=== PATIENT | male | born 1955 | race American Indian/Alaskan Native ===

== ENCOUNTER 2018-04-17 10:00 | Emergency (ER) | payer OTHER ==
[2018-04-17] MEDS ORDERED: D50W 25 GM/50 ML SYRINGE IV ONE (10:13)
[2018-04-17 10:32] LABS: Protime INR 1.03
[2018-04-17 10:33] LABS: Absolute Lymphocytes (CBC) 2.6 K/uL (0.7-4.9); Absolute Monocytes 0.7 K/uL (0.1-1.3); Absolute Neutrophil 3.4 K/uL (1.8-8.0); Basophils % 0.8 % (0-1.3); Eosinophils % 0.6 % (0-4.4); Hematocrit 43.8 % (39.6-49.0); Lymphocytes % 38.5 % (15.3-44.8); MCV 85.9 fL (80-100); MPV 8.5 fL (7.6-11.3); Monocytes % 10.4 % (3.3-12.3)
[2018-04-17 10:45] LABS: ALT/SGPT 45 U/L (12-78); AST/SGOT 29 U/L (15-37); Albumin 3.9 g/dL (3.4-5.0); Alkaline Phosphatase 76 U/L (45-117); BUN Blood Urea Nitrogen 14 mg/dL (7-18); Bicarbonate 30 mmol/L (21-32); Bilirubin Direct 0.2 mg/dL (0-0.2); Bilirubin Total 0.7 mg/dL (0.2-1.0); Magnesium 2.3 mg/dL (1.8-2.4); NT PRO-BNP 6 pg/mL (<125); Potassium 3.7 mmol/L (3.5-5.1); Protein, Total 8.5 g/dL (6.4-8.2); Sodium Level 139 mmol/L (136-145); Troponin (Emerg Dept Use Only) < 0.02 ng/mL (0.0-0.045)
[2018-04-17 10:46] LABS: Glucose Level 31 mg/dL (74-106)
--- NOTE | 2018-04-17 10:52 | RAD REPORT ---
EXAM DESCRIPTION: RAD - Chest Single View - 04/17/2018 10:42 am CLINICAL HISTORY: syncope Chest pain. COMPARISON: Chest Pa And Lat (2 Views) dated 03/27/2016; Chest Pa And Lat (2 Views) dated 12/19/2015 FINDINGS: Portable technique limits examination quality. The lungs are grossly clear. The heart is normal in size. No displaced fractures. IMPRESSION: No acute intrathoracic process suspected.
[2018-04-17 10:53] LABS: Blood Morphology Comment NOT SEEN (NOT SEEN); Platelet Estimate ADEQ; Urine White Blood Cell Casts OK
--- NOTE | 2018-04-17 11:17 | ER ---
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 Pt given additional orange juice at this time, tolerating well. Pt appears calm at this time, denies any symptoms. A \\T\\ O X 3. 10:02 Transition of care: patient was not received from another setting of care. Onset of aa5 symptoms was April 17, 2018. Care prior to arrival: None. 10:02 Method Of Arrival: Wheelchair aa5 10:02 Acuity: IVY 2 aa5 10:15 Risk Assessment: Do you want to hurt yourself or someone else? Patient reports no aa5 desire to harm self or others. Initial Sepsis Screen: Does the patient meet any 2 criteria? No. Patient's initial sepsis screen is negative. Does the patient have a suspected source of infection? No. Patient's initial sepsis screen is negative. Historical: - Allergies: 10:15 No Known Allergies; aa5 - PMHx: 10:15 Diabetes - IDDM; Hyperlipidemia; aa5 - PSHx: 10:15 None; aa5 - Immunization history:: Flu vaccine is up to date. - Ebola Screening: : No symptoms or risks identified at this time. - Social history:: Smoking status: Patient/guardian denies using tobacco. Screenin:20 Abuse screen: Denies threats or abuse. Nutritional screening: No deficits noted. aa5 Tuberculosis screening: No symptoms or risk factors identified. Fall Risk None identified. Assessment: 10:05 General: Appears comfortable, Behavior is calm, cooperative, Pt states "I took lantus aa5 last night and I was so busy at work I didn't eat breakfast" . Pain: Denies pain. Neuro: Level of Consciousness is awake, alert, obeys commands, Oriented to person, place, time, situation, Costume Draper are equal bilaterally Moves all extremities. Speech is normal, Facial symmetry appears normal, Pupils are PERRLA. Cardiovascular: Heart tones S1 S2 present Rhythm is regular. Respiratory: Airway is patent Respiratory effort is even, unlabored, Respiratory pattern is regular, symmetrical, Breath sounds are clear bilaterally. GI: Abdomen is round non-distended, Bowel sounds present X 4 quads. Abd is soft and non tender X 4 quads. Patient currently denies nausea, vomiting. : No signs and/or symptoms were reported regarding the genitourinary system. EENT: No signs and/or symptoms were reported regarding the EENT system. Derm: Skin is dry, Skin is normal, Skin temperature is warm. Musculoskeletal: Range of motion: intact in all extremities. 10:15 Reassessment: Pt sitting up in bed, states no complaint at this time. . aa5 10:40 Reassessment: Pt sitting up in bed. Pt's at bedside. Equal unlabored respirations, aa5 skin is normal/warm/dry, A \\T\\ O x 4 . 11:12 Reassessment: Pt ate 100% of food. Pt sitting up in bed, A \\T\\ O X 4, equal and unlabored aa5 respirations, skin is normal/warm/dry. Pt's at bedside . Vital Signs: 10:05 BP 157 / 87; Pulse 72; Resp 16 S; Temp 98.8(O); Pulse Ox 95% on R/A; Weight 91.63 kg aa5 (R); Height 5 ft. 11 in. (180.34 cm) (R); Pain 0/10; 10:45 BP 150 / 83; Pulse 72; Resp 18 S; Temp 98.0(TE); Pulse Ox 100% on R/A; Pain 0/10; aa5 10:05 Body Mass Index 28.17 (91.63 kg, 180.34 cm) aa5 ED Course: 10:02 Patient arrived in ED. iw 10:05 Patient has correct armband on for positive identification. Placed in gown. Bed in low aa5 position. Call light in reach. Side rails up X2. 10:05 lunchroom monitor on. Pulse ox on. NIBP on. aa5 10:05 Arm band placed on. aa5 10:09 Karen Cantor RN is Primary Nurse. aa5 10:13 Ivan Andrade PA is PHCP. cp 10:13 Gage Regan MD is Attending Physician. cp 10:22 Triage completed. aa5 10:31 X-ray completed. Portable x-ray completed in exam room. Patient tolerated procedure mh1 well. 10:32 EKG done, by senior director of global commercial technology solutions. reviewed by Ivan LAM. at1 10:45 Notified Nurse Practitioner and/or Physician Nurse Healthcare Manager of a critical lab result(s), iw glucose 31. 10:46 XRAY Chest (1 view) In Process Unspecified. EDMS 11:28 IV discontinued, intact, bleeding controlled, No redness/swelling at site. Pressure aa5 dressing applied. 11:30 No provider procedures requiring assistance completed. aa5 Administered Medications: 10:10 Drug: D50W 50 ml Route: IVP; Site: right antecubital; aa5 Point of Care Testing: Blood Glucose: 10:02 Blood Glucose: 29 mg/dL; aa5 10:15 Blood Glucose: 146 mg/dL; aa5 10:40 Blood Glucose: 152 mg/dL; aa5 11:12 Blood Glucose: 155 mg/dL; aa5 Ranges: Outcome: 11:17 Discharge ordered by MD. cp 11:28 Discharged to home ambulatory, with significant other. aa5 11:28 Condition: improved 11:28 Discharge instructions given to patient, Instructed on discharge instructions, follow up and referral plans. Demonstrated understanding of instructions, follow-up care. 11:30 Patient left the ED. aa5 Signatures: Dispatcher [employer] EDNJ Orly Marroquin 1 Nabila Garcia RN RN iw Karen Cantor RN RN aa5 Pauly Feldman, timber framer helper EKG Tat1 Ivan Andrade PA PA cp Corrections: (The following items were deleted from the chart) 10:24 10:05 BP 157 / 87; Pulse 72bpm; Resp 16bpm; Spontaneous; Pulse Ox 95% RA; 91.63 kg aa5 Reported; Height 5 ft. 11 in. Reported; BMI: 28.1; Pain 0/10; aa5 10:25 10:02 Arm band placed on aa5 aa5
--- NOTE | 2018-04-17 11:17 | EDPHYS ---
Physician Documentation [facility] Name: Rosa Solis Age: 62 yrs Sex: Male : 1955 Arrival Date: 04/17/2018 Time: 10:02 Bed 16 Private MD: ED Physician Gage Regan HPI: 04/17 10:35 This 62 yrs old Other Male presents to ER via Wheelchair with complaints of Low Blood cp Sugar. 10:35 The patient or guardian reports hypoglycemia, that was potentially precipitated by not cp eating breakfast this morning, Treatment prior to arrival includes: ingestion of sugary substance, drank orange juice. Onset: The symptoms/episode began/occurred this morning. Associated signs and symptoms: Pertinent negatives: chest pain, abdominal pain, LOC. Current symptoms: In the emergency department the patient's symptoms have improved, markedly. Historical: - Allergies: 10:15 No Known Allergies; aa5 - PMHx: 10:15 Diabetes - IDDM; Hyperlipidemia; aa5 - PSHx: 10:15 None; aa5 - Immunization history:: Flu vaccine is up to date. - Ebola Screening: : No symptoms or risks identified at this time. - Social history:: Smoking status: Patient/guardian denies using tobacco. ROS: 10:40 Constitutional: Negative for body aches, chills, fever, poor PO intake. cp 10:40 Eyes: Negative for injury, pain, redness, and discharge. cp 10:40 ENT: Negative for drainage from ear(s), ear pain, sore throat, difficulty swallowing, difficulty handling secretions. 10:40 Cardiovascular: Negative for chest pain, edema, palpitations. 10:40 Respiratory: Negative for cough, shortness of breath, wheezing. 10:40 Abdomen/GI: Negative for abdominal pain, nausea, vomiting, and diarrhea, anorexia, black/tarry stool, rectal bleeding. 10:40 Back: Negative for pain at rest, pain with movement. 10:40 : Negative for urinary symptoms. 10:40 Skin: Negative for cellulitis, rash. 10:40 Neuro: Negative for altered mental status, dizziness, headache, syncope, near syncope, weakness. 10:40 All other systems are negative. Exam: 10:44 ECG was reviewed by the Attending Physician. cp 10:47 Constitutional: The patient appears in no acute distress, alert, awake, cp non-diaphoretic, non-toxic, well developed, well nourished. 10:47 Head/Face: Normocephalic, atraumatic. cp 10:47 Eyes: Periorbital structures: appear normal, Pupils: equal, round, and reactive to light and accomodation, Extraocular movements: intact throughout, Conjunctiva: normal, no exudate, no injection, Sclera: no appreciated abnormality, Lids and lashes: appear normal, bilaterally. 10:47 ENT: External ear(s): are unremarkable, Ear canal(s): are normal, clear, TM's: bulging, is not appreciated, bilaterally, dullness, bilaterally, erythema, is not appreciated, bilaterally, Nose: is normal, Mouth: Lips: moist, Oral mucosa: pink and intact, moist, Posterior pharynx: is normal, airway is patent, no erythema, no exudate, Voice: is normal. 10:47 Neck: ROM/movement: is normal, is supple, without pain, no range of motions limitations, no meningismus, no nuchal rigidity. 10:47 Chest/axilla: Inspection: normal, Palpation: is normal, no crepitus, no tenderness. 10:47 Cardiovascular: Rate: normal, Rhythm: regular, Edema: is not appreciated, JVD: is not appreciated. 10:47 Respiratory: the patient does not display signs of respiratory distress, Respirations: normal, no use of accessory muscles, no retractions, no splinting, no tachypnea, labored breathing, is not present, Breath sounds: are clear throughout, no decreased breath sounds, no stridor, no wheezing. 10:47 Abdomen/GI: Inspection: abdomen appears normal, Bowel sounds: active, all quadrants, Palpation: abdomen is soft and non-tender, in all quadrants, rebound tenderness, is not appreciated, voluntary guarding, is not appreciated, involuntary guarding, is not appreciated. 10:47 Back: pain, is absent, ROM is normal. 10:47 Skin: cellulitis, is not appreciated, no rash present. 10:47 Neuro: Orientation: to person, place \T\ time. Mentation: is normal, Cerebellar function: is grossly normal, Motor: moves all fours, strength is normal, Sensation: is normal. Vital Signs: 10:05 BP 157 / 87; Pulse 72; Resp 16 S; Temp 98.8(O); Pulse Ox 95% on R/A; Weight 91.63 kg aa5 (R); Height 5 ft. 11 in. (180.34 cm) (R); Pain 0/10; 10:45 BP 150 / 83; Pulse 72; Resp 18 S; Temp 98.0(TE); Pulse Ox 100% on R/A; Pain 0/10; aa5 10:05 Body Mass Index 28.17 (91.63 kg, 180.34 cm) aa5 MDM: 10:26 Patient medically screened. cp 11:15 Data reviewed: vital signs, nurses notes, lab test result(s), EKG, radiologic studies, cp plain films. 11:15 Test interpretation: by ED physician or midlevel provider: ECG, plain radiologic cp studies. Counseling: I had a detailed discussion with the patient and/or guardian regarding: the historical points, exam findings, and any diagnostic results supporting the discharge/admit diagnosis, lab results, radiology results, to return to the emergency department if symptoms worsen or persist or if there are any questions or concerns that arise at home. Response to treatment: the patient's symptoms have markedly improved after treatment, and as a result, I will discharge patient. 04/17 10:08 Order name: Basic Metabolic Panel; Complete Time: 11:04/17 11:07 Interpretation: Normal except: GLUC 31; GFR 68. 04/17 10:08 Order name: CBC with Diff; Complete Time: 11:04/17 10:46 Interpretation: Reviewed. 04/17 10:08 Order name: LFT's; Complete Time: 11:04/17 11:08 Interpretation: Normal except: TP 8.5; GLOB 4.6; A/G 0.8. 04/17 10:08 Order name: Magnesium; Complete Time: 11:07 04/17 10:08 Order name: NT PRO-BNP; Complete Time: 11: bd 04/17 10:08 Order name: PT-INR; Complete Time: 10:46 bd 04/17 10:08 Order name: Troponin (emerg Dept Use Only); Complete Time: 11:04/17 10:08 Order name: XRAY Chest (1 view); Complete Time: 11:04/17 10:08 Order name: EKG; Complete Time: 10: bd 04/17 10:08 Order name: Cardiac monitoring; Complete Time: 10: bd 04/17 10:18 Order name: glucometer results - FOR PT WITH NO ID; Complete Time: 10: aa5 04/17 10:25 Order name: Diet Regular; Complete Time: 10:26 aa5 04/17 10:54 Order name: CBC Smear Scan; Complete Time: 11:07 EDMS 04/17 10:08 Order name: EKG - Nurse/Tech; Complete Time: 10:40 bd 04/17 10:08 Order name: IV Saline Lock; Complete Time: 10: bd 04/17 10:08 Order name: Labs collected and sent; Complete Time: : bd 04/17 10:08 Order name: O2 Per Protocol; Complete Time: : bd 04/17 10:08 Order name: O2 Sat Monitoring; Complete Time: 10: bd 04/17 11:08 Order name: Accucheck Blood Glucose; Complete Time: 11:12 cp EC:44 Rate is 73 beats/min. Rhythm is regular. ID interval is normal. QRS interval is normal. cp QT interval is normal. Interpreted by me. Reviewed by me. Administered Medications: 10:10 Drug: D50W 50 ml Route: IVP; Site: right antecubital; aa5 Point of Care Testing: Blood Glucose: 10:02 Blood Glucose: 29 mg/dL; aa5 10:15 Blood Glucose: 146 mg/dL; aa5 10:40 Blood Glucose: 152 mg/dL; aa5 11:12 Blood Glucose: 155 mg/dL; aa5 Ranges: Critical Glucose Levels:Adult <50 mg/dl or >400 mg/dl <40 mg/dl or >180 mg/dl Disposition: 13:00 Co-signature as Attending Physician, Gage Regan MD I agree with the assessment and kdr plan of care. Disposition: 04/17/18 11:17 Discharged to Home. Impression: Hypoglycemia, unspecified. - Condition is Stable. - Discharge Instructions: Hypoglycemia, Blood Glucose Monitoring, Adult. - Work release form, Medication Reconciliation Form, Thank You Letter, Antibiotic Education, Prescription Opioid Use form. - Follow up: Private Physician; When: 1 - 2 days; Reason: Recheck today's complaints. - Problem is new. - Symptoms have improved. Signatures: Dispatcher [employer] EDMS Radha Barnett Gage Larry MD MD kdr Karen Cantor RN RN aa5 Ivan Andrade PA PA cp Corrections: (The following items were deleted from the chart) 11:30 11:17 04/17/2018 11:17 Discharged to Home. Impression: Hypoglycemia, unspecified. aa5 Condition is Stable. Forms are Medication Reconciliation Form, Thank You Letter, Antibiotic Education, Prescription Opioid Use. Follow up: Private Physician; When: 1 - 2 days; Reason: Recheck today's complaints. Problem is new. Symptoms have improved. cp
--- NOTE | 2018-04-17 12:33 | EKG ---
Test Date: 2018-04-17 Test Time: 10:22:07 Executive Advisor: NATALIA MEASUREMENT RESULTS: Intervals: Rate: 73 HI: 142 QRSD: 92 QT: 372 QTc: 409 [place]: P: 62 HI: 142 QRS: 39 T: 40 INTERPRETIVE STATEMENTS: Normal sinus rhythm Normal ECG Compared to ECG 03/27/2016 15:25:31 Left ventricular hypertrophy no longer present Electronically Signed On 04-17-18 12:32:42 MANAGER STRATEGIC PARTNERSHIPS by Shant Jacobs
== END 2018-04-17 11:30 | disposition home or self-care (01) ==
LOC: ER 10:00
DX: E11.649 Type 2 diabetes mellitus with hypoglycemia without coma (principal)
CPT/HCPCS: 36415; 71045; 80048; 80076; 82962; 83735; 83880; 84484; 85025; 85610; 93005; 96374; 99284

== ENCOUNTER 2018-08-18 07:48 | Day surgery (SDC) | payer OTHER ==
[2018-08-18] MEDS ORDERED: NS 0.9% VIAL 10 ML ONE (08:33)
[2018-08-18] MEDS ORDERED: PHENYLEPHRINE 10% OPTH 5ML ONE (08:38)
[2018-08-18] MEDS ORDERED: NA CHLORIDE 0.9% 500 ML ONE (08:38)
[2018-08-18] MEDS ORDERED: BUPIVACAINE 0.25% PF 10 ML VIAL ONE (08:39)
[2018-08-18] MEDS ORDERED: LIDOCAINE 2% MPF 5 ML VIAL ONE (08:39)
[2018-08-18] MEDS ORDERED: CYCLOPENTOLATE 1% OPTH 2 ML ONE (08:39)
[2018-08-18] MEDS ORDERED: PHENYLEPHRINE 10% OPTH 5ML OPTH ONE ×2 (08:40→08:45)
[2018-08-18] MEDS ORDERED: CYCLOPENTOLATE 1% OPTH 2 ML OPTH ONE ×2 (08:40→08:45)
[2018-08-18] MEDS ORDERED: TETRACAINE HCL 0.5% 4ML OPTH ONE (08:41)
[2018-08-18] MEDS ORDERED: LIDOCAINE HCL/PF 3.5% OPTH GEL ONE (08:42)
[2018-08-18] MEDS: LIDOCAINE 1% MPF 2 ML AMPULE ONE ×3 (09:41→10:10)
[2018-08-18] MEDS: DUOVISC 1 KIT OPTH ONE ×2 (09:41→10:08)
[2018-08-18] MEDS: BALANCED SALT IRRIG PLAIN 500 ML BTL IRR ONE ×2 (09:41→10:08)
[2018-08-18] MEDS: EPINEPHRINE/PF 1 MG/ML AMP ONE ×2 (09:42→10:08)
[2018-08-18] MEDS: MOXIFLOXACIN HCL 10 DROPS/ML **OR USE OPTH ONE ×3 (09:42→10:31)
[2018-08-18] MEDS ORDERED: MIDAZOLAM HCL 2 MG/2 ML INJ ONE (09:43)
[2018-08-18] MEDS ORDERED: FENTANYL CITR 100 MCG/2 ML ONE (09:43)
[2018-08-18] MEDS ORDERED: TRYPAN BLUE 0.5 ML SYR OPTH ONE (10:13)
--- NOTE | 2018-08-18 10:41 | P.BOP ---
Preoperative diagnosis: Nuclear sclerotic and posterior subcapsular cataract OD Postoperative diagnosis: Same Primary procedure: Phacoemulsification with IOL OD Estimated blood loss: None Anesthesia: Local (Topical with anesthesia for cataract surgery) Complications: None Implants: SN60WF +21.0 Transferred to: Other (Day surgery) Condition: Good
[2018-08-18 11:03] VITALS: BP 135/78; TEMP 97.7; O2SAT 100
--- NOTE | 2018-08-18 22:20 | OP ---
Date of Procedure: 08/18/2018 Surgeon: Julissa Mesa MD Anesthesiologist: Va Schwarz CRNA; Gita Levin CRNA; and Raymond Schilling MD Preoperative Diagnosis: Nuclear sclerotic and posterior subcapsular cataract, OD (right eye). Operation Performed: Phacoemulsification with intraocular lens implant, right eye. Anesthesia: Per cataract surgery. Complications: None. Description Of Procedure: In the operating room the patient was prepped and draped in the usual sterile fashion for ophthalmic surgery. A lid speculum was placed in the OD. Two paracentesis sites were made superiorly and inferiorly in the limbal cornea. Viscoat was placed in the anterior chamber and a crescent blade was used to make a corneal groove and tunnel, and a keratome was used to enter the anterior chamber. Provisc was placed in the anterior chamber and a 360 degree capsulotomy was performed with a cystitome. The lens was hydrodissected with BSS and rotated freely. The lens was removed with a stop and chop technique. 12.45 phaco CDE was used to remove the lens. Residual cortex was removed with the irrigation and aspiration. Provisc was placed in the capsular bag. An SN60WF +21.0 diopter lens was placed in the capsular bag without complications. Irrigation and aspiration was used to remove residual viscoelastic. The paracentesis sites were hydrated with BSS. The wound and paracentesis sites were inspected and found to be watertight. Vigamox 0.07 cc was placed intracamerally at the end of the procedure. The eye was irrigated with balanced salt solution. The eye was patched with a soft cotton patch and Welsh metal shield. The patient was returned to day surgery in good condition. Comments: Akten was placed in the eye in Day Surgery and irrigated out of the eye with BSS in the OR. Preservative free 1% lidocaine was placed in the anterior chamber prior to Viscoat. Discharge Instructions: Mr. Lee is discharged to home in good condition. He is to follow up with Dr. Mesa at 3 o'clock this afternoon and then in the morning. MATT/RC Voice ID: [id number] Report ID: [id number] [facility]
== END 2018-08-18 11:15 | disposition home or self-care (01) ==
LOC: OR 07:48
PROVIDERS: ATTEND Ophthalmology Retina Specialist
PROC: 08RJ3JZ Replacement of Right Lens with Synthetic Substitute, Percutaneous Approach (ICD-10-PCS; principal; 2018-08-18 09:30)
DX: H25.11 Age-related nuclear cataract, right eye (principal); H25.041 Posterior subcapsular polar age-related cataract, right eye; E11.9 Type 2 diabetes mellitus without complications; I10 Essential (primary) hypertension; Z79.4 Long term (current) use of insulin; Z79.899 Other long term (current) drug therapy
CPT/HCPCS: 82962; J0171; J2001; J2250; J3010